=== PATIENT | female | born 1960 | race Caucasian/White ===

== ENCOUNTER 2021-06-27 10:23 | Day surgery (SDC) | payer BC, SELFPAY ==
[~2021-06-27] VITALS: Ht 152.4 cm; Wt 59.0 kg
[2021-06-27] MEDS ORDERED: KETOROLAC TROMETHAMINE 30 MG VIAL ONE (12:32)
[2021-06-27] MEDS ORDERED: ONDANSETRON HCL 4 MG/2 ML VIAL ONE (12:32)
[2021-06-27] MEDS ORDERED: DEXAMETHASONE SOD PHOSPHATE 4 MG/ML VIAL ONE (12:32)
[2021-06-27] MEDS ORDERED: SEVOFLURANE 15 MIN GAS INH ONE (12:32)
[2021-06-27] MEDS ORDERED: CEFAZOLIN 1 GM IVPB PREMIX 50 ML IV ONE (12:32)
[2021-06-27] MEDS ORDERED: PROPOFOL 200MG/ 20ML VIAL (DIPRIVAN) IV ONE (12:32)
[2021-06-27] MEDS ORDERED: METOCLOPRAMIDE HCL 10 MG/2 ML VIAL ONE (12:32)
[2021-06-27] MEDS ORDERED: NS 1000 ML IV.SOLN IV ONE (12:32)
[2021-06-27] MEDS ORDERED: ONDANSETRON HCL 4 MG/2 ML VIAL IVP PRN ×2 (13:00→13:15)
[2021-06-27] MEDS ORDERED: NALOXONE HCL 0.4 MG/ML AMP (NARCAN) IVP PRN (13:00)
[2021-06-27] MEDS ORDERED: MEPERIDINE HCL/PF 25 MG/ML DISP.SYRIN IVP PRN (13:00)
[2021-06-27] MEDS ORDERED: KETOROLAC TROMETHAMINE 30 MG VIAL IVP PRN (13:00)
[2021-06-27] MEDS ORDERED: HYDROmorphone 1 MG/ML INJ. CARTRIDGE IVP PRN (13:00)
[2021-06-27] MEDS ORDERED: LR 1,000 ML IV SCH (13:00)
[2021-06-27] MEDS ORDERED: HYDROcodone/ACETAMIN 5-325 MG TAB (NORCO/ VICODIN) PO PRN (13:15)
[2021-06-27] MEDS ORDERED: OXYCODONE/ACETAMINOPHEN 5-325 TABLET PO PRN ×2 (13:15)
[2021-06-27 15:40] VITALS: BP_SYST 136
== END 2021-06-27 15:30 | disposition home or self-care (01) ==
LOC: SDS 10:23 → SMU 10:55 → SDS 15:30
PROVIDERS: ATTEND Specialist
DX: R93.89 Abnormal findings on diagnostic imaging of other specified body structures (principal); N95.2 Postmenopausal atrophic vaginitis; E78.00 Pure hypercholesterolemia, unspecified; Z78.0 Asymptomatic menopausal state; Z79.899 Other long term (current) drug therapy
CPT/HCPCS: 36415; 58558; 87426; 88305; J0690; J1100; J1885; J2405; J2704; J2765; J7030